=== PATIENT | female | born 2000 | race Caucasian/White ===

== ENCOUNTER 2022-08-16 10:49 | Inpatient (IN) | payer BC, MEDICAID ==
[2022-08-16] VITALS (51 sets, daily range): BP systolic 90–153; BP diastolic 50–96
[~2022-08-16] VITALS: Ht 165 cm; Wt 82.8 kg
[2022-08-16] MEDS ORDERED: D5 LR IV SOLUTION 1,000 ML IV ONE (11:47)
[2022-08-16] MEDS: D5 LR IV SOLUTION 1,000 ML IV SCH ×2 (12:22→20:48)
[2022-08-16 12:36] LABS: BILIRUBIN,URINE NEGATIVE (NEGATIVE); CLARITY,URINE CLEAR; COLOR,URINE YELLOW; GLUCOSE, URINE (UA) NEGATIVE (NEGATIVE); KETONES,URINE NEGATIVE (NEGATIVE); LEUKOCYTE ESTERASE ,URINE NEGATIVE (NEGATIVE); NITRITE,URINE NEGATIVE (NEGATIVE); PROTEIN,URINE NEGATIVE (NEGATIVE)
[2022-08-16 12:37] LABS: BASOPHILS % (AUTO) 0 % (0-10); EOSINOPHILS # (AUTO) 0.2 10^3/uL (0.0-0.3); EOSINOPHILS % (AUTO) 1 % (0-10); HEMATOCRIT 38 % (35-52); HEMOGLOBIN 13.3 g/dL (11.5-16.0); LYMPHOCYTES # (AUTO) 2.5 10^3/uL (1.0-4.0); LYMPHOCYTES % (AUTO) 16 % (12-44); MEAN CORPUSCULAR HEMOGLOBIN 32 pg (25-34); MEAN CORPUSCULAR HGB CONC 35 g/dL (32-36); MEAN CORPUSCULAR VOLUME 93 fL (80-99); MEAN PLATELET VOLUME 11.1 fL (9.0-12.2); MONOCYTES # (AUTO) 1.4 10^3/uL (0.0-1.0); MONOCYTES % (AUTO) 9 % (0-12); NEUTROPHILS # (AUTO) 11.5 10^3/uL (1.8-7.8); NEUTROPHILS % (AUTO) 73 % (42-75); PLATELET COUNT 296 10^3/uL (130-400); WHITE BLOOD COUNT 15.7 10^3/uL (4.3-11.0)
[2022-08-16 12:46] LABS: BACTERIA,URINE FEW /HPF
[2022-08-16 12:47] LABS: SQUAMOUS EPITHELIAL CELL,UR 0-2 /HPF
[2022-08-16 13:01] LABS: EOSINOPHILS % (MANUAL) 1 %; LYMPHOCYTES % (MANUAL) 14 %; MONOCYTES % (MANUAL) 9 %; NEUTROPHILS % (MANUAL) 76 %; RBC MORPH NORMAL
[2022-08-16] MEDS ORDERED: PNV-9 PO (13:32)
[2022-08-16] MEDS ORDERED: FERR-84 PO (13:32)
--- NOTE | 2022-08-16 15:19 | History & Physical-OB ---
OB - Chief Complaint & HPI Date/Time Date of Admission: Date of Admission: Aug 16, 2022 at 11:37 Date seen by a Provider: Aug 16, 2022 Time Seen by a Provider: 14:25 Chief Complaint/History OB-Reason for Admission/Chief: Onset of Labor Hx : 1 Hx Para: 0 Gestational Age in Weeks: 39 Gestational Age in Days: 6 History of Labs A+, Ab neg, Rub Imm HIV/RPR/HepB/C NR Normal 1 hr GTT GBS neg Allergies and Home Medications Allergies Coded Allergies: No Known Drug Allergies (Unverified , 08/16/22) Patient Home Medication List Home Medication List Reviewed: Yes Ferrous Sulfate (Iron) 325 Mg (65 Mg Iron) Tablet, 325 MG PO, (Reported) Entered as Reported by: OCTAVIO MANDEL on 08/16/221331 Last Action: New Order Pnv 119/Iron Fum/Folic Acid ( 19 Tablet) 29 Mg Iron-1 Mg Tablet, 1 EACH PO, (Reported) Entered as Reported by: OCTAVIO MANDEL on 08/16/221331 Last Action: New Order OB - History Hx of Present Care: Yes Ultrasounds: Normal mid trimester US Obstetrical Complications: None Medical Complications: None Obstetrical History Hx : 1 Patient Past Medical History None Social History/Family History Alcohol Use: Denies Use Recreational Drug Use: No Smoking Cessation: Never smoker Immunizations Tetanus Booster (TDap): Less than 5yrs Rubella: immune RPR/VDRL: Negative GBS Status: Negative HBsAG: Negative OB - Admission Exam Physical Exam Vitals: Vital Signs 08/16/22 08/16/22 08/16/22 08/16/22 11:15 11:45 12:00 12:30 Temp 36.5 Pulse 97 Resp 18 B/P (MAP) 139/90 (106) Pulse Ox 98 O2 Delivery Room Air HEENT: NCAT Heart: Rhythm Normal Lungs: Clear Abdomen: Gravid Cervical Dilatation: 6cm Effacement: 100% Station: -1 Membranes: Intact Accelerations: Accelerations Present Decelerations: No Decelerations Short Term Variability: Present Regional Operations Director Variability: Average (6-25) Contractions on Admission: < 5 Minutes Apart Intensity: Firm Labs Laboratory Tests Test 08/16/22 12:32 Range/Units White Blood Count 15.7 H 4.3-11.0 10^3/uL Red Blood Count 4.10 3.80-5.11 10^6/uL Hemoglobin 13.3 11.5-16.0 g/dL Hematocrit 38 35-52 % Mean Corpuscular Volume 93 80-99 fL Mean Corpuscular Hemoglobin 32 25-34 pg Mean Corpuscular Hemoglobin Concent 35 32-36 g/dL Red Cell Distribution Width 14.3 10.0-14.5 % Platelet Count 296 130-400 10^3/uL Mean Platelet Volume 11.1 9.0-12.2 fL Immature Granulocyte % (Auto) 1 % Neutrophils (%) (Auto) 73 42-75 % Lymphocytes (%) (Auto) 16 12-44 % Monocytes (%) (Auto) 9 0-12 % Eosinophils (%) (Auto) 1 0-10 % Basophils (%) (Auto) 0 0-10 % Neutrophils # (Auto) 11.5 H 1.8-7.8 10^3/uL Lymphocytes # (Auto) 2.5 1.0-4.0 10^3/uL Monocytes # (Auto) 1.4 H 0.0-1.0 10^3/uL Eosinophils # (Auto) 0.2 0.0-0.3 10^3/uL Basophils # (Auto) 0.0 0.0-0.1 10^3/uL Immature Granulocyte # (Auto) 0.1 0.0-0.1 10^3/uL Neutrophils % (Manual) 76 % Lymphocytes % (Manual) 14 % Monocytes % (Manual) 9 % Eosinophils % (Manual) 1 % Blood Morphology Comment NORMAL Urine Color YELLOW Urine Clarity CLEAR Urine pH 7.0 5-9 Urine Specific [place] 1.010 L 1.016-1.022 Urine Protein NEGATIVE NEGATIVE Urine Glucose (UA) NEGATIVE NEGATIVE Urine Ketones NEGATIVE NEGATIVE Urine Nitrite NEGATIVE NEGATIVE Urine Bilirubin NEGATIVE NEGATIVE Urine Urobilinogen 0.2 < = 1.0 MG/DL Urine Leukocyte Esterase NEGATIVE NEGATIVE Urine RBC (Auto) NEGATIVE NEGATIVE Urine RBC NONE /HPF Urine WBC NONE /HPF Urine Squamous Epithelial Cells 0-2 /HPF Urine Crystals NONE /LPF Urine Bacteria FEW H /HPF Urine Casts NONE /LPF Urine Mucus NEGATIVE /LPF Urine Culture Indicated NO OB - Assessment/Plan/Diagnosis Assessment Assessment: active labor Admission Dx Third Trimester 39 week gestation Admission Status: Inpatient Order (span 2 midnights) Reason for Inpatient Admission: Labor and post care Plan Other Plan 22 yo G1 @ 39.6 wga here in active labor Plan - Expectant management - GBS neg - AROM 1430 Clear Copy Copies To 1: SAMANTHA HERNANDEZ MD, HOLLY R MD Aug 16, 2022 15:19
[2022-08-16] MEDS ORDERED: PANTOPRAZOLE 40 MG (PROTONIX) VIAL IV NR (16:15)
[2022-08-16] MEDS ORDERED: OXYTOCIN PRE-MIX DRIP 500 ML IV SCH (16:15)
[2022-08-16] MEDS ORDERED: fentaNYL INJ 100 MCG/2 ML AMP ONE ×2 (17:27→18:41)
[2022-08-16] MEDS ORDERED: fentaNYL INJ 100 MCG/2 ML AMP IVP PRN (17:30)
[2022-08-16] MEDS ORDERED: fentaNYL 2 mcg/ml BUPIVA 0.125 100 ML ONE (18:13)
[2022-08-16] MEDS ORDERED: BUPIVACAINE 0.25% 30 ML (SENSORCAINE) VIAL ONE (18:41)
[2022-08-16] MEDS ORDERED: ONDANSETRON 4 MG/2 ML (SDV) Z0FRAN IV PRN (19:15)
[2022-08-16] MEDS ORDERED: LACTATED RINGERS 1,000 ML IV SCH (19:15)
[2022-08-16] MEDS ORDERED: diphenhydrAMINE 50 MG/ML INJ (BENADRYL) IV PRN (19:15)
[2022-08-16] MEDS ORDERED: NALOXONE 0.4 MG/ML 1 ML (NARCAN) VIAL IV PRN (19:15)
[2022-08-16] MEDS ORDERED: fentaNYL 2 mcg/ml BUPIVA 0.125 100 ML EPI SCH (19:15)
[2022-08-16] MEDS ORDERED: FLU QUADRIvalent (6 months+) 60 mcg/0.5 ml 2022-23 (Fluzone) IM ONE (20:00)
[2022-08-17] VITALS (14 sets, daily range): BP systolic 109–133; BP diastolic 60–90
[2022-08-17] MEDS ORDERED: BENZOCAINE/MENTHOL (DERMOPLAST) 56 ML CAN TP PRN
[2022-08-17] MEDS ORDERED: WITCH HAZEL(TUCKS) 40 EA JAR TOP PRN
[2022-08-17] MEDS ORDERED: MEASLES,MUMPS,RUBELLA 1 EA INJ SQ ONE
[2022-08-17] MEDS ORDERED: TETANUS,DIPTH,PERTUSS P/F (BOOSTRIX) 0.5 ML VIAL IM ONE
[2022-08-17] MEDS ORDERED: OXYTOCIN PRE-MIX DRIP 500 ML IV SCH
[2022-08-17] MEDS ORDERED: OXYTOCIN PRE-MIX DRIP 500 ML IV ONE (00:09)
--- NOTE | 2022-08-17 00:34 | OB Labor & Delivery Record ---
Vag Delivery Note Vag Delivery Note Date of Delivery: 08/17/22 Preoperative Diagnosis: Lydia Garcia is a (22 /Para 1 / 0, Gestational Age (wks)39.6 here in active labor Postoperative Diagnosis: Same Surgeon: SAMANTHA HERNANDEZ MD Record Tester: None Anesthesia: Epidural Delivery Type: @ 0000 Findings: Viable female infant, apgars 8/9, weight Lacerations: 2nd degree laceration Intact placenta with 3 vessel cord. No nuchal cord, body cord or shoulder dystocia Estimated Blood Loss: 125 ml Complications: None Condition: Stable Description of Procedure: The patient is a 22 year old female who presented in active labor. She was admitted and informed consent was obtained. Her labor course was unremarkable. She progressed to complete dilatation and began to push. She was then set up for delivery. The 's head was delivered atraumatically in the LUPILLO position. The shoulders and remainder of the infant's body were then delivered without difficulty. Upon delivery, the head was held below the level of the perineum and the mouth and nares were bulb suctioned. The cord was doubly clamped and cut by FOB after 2 min delay and the was attended to by the pediatric staff on maternal abdomen. An intact placenta with 3-vessel cord delivered via Olegario and there was found to be minimal bleeding.~ Vigorous fundal massage was performed and the fundus was found to be firm. IV oxytocin was given. Examination of the vagina and perineum revealed a 2nd degree perineal laceration repaired in the usual fashion with 3-0 vicryl suture. Following the repair, sponge, instrument and needle counts were correct. Mom and baby were both in stable condition in the labor suite. Vitals - Labs Vital Signs - I&O Vital Signs Date Time Temp Pulse Resp B/P (MAP) Pulse Ox O2 Delivery O2 Flow Rate FiO2 08/16/22 19:00 104 18 121/57 (78) 98 Room Air 08/16/22 18:55 109 18 129/66 (87) 100 Room Air 08/16/22 18:50 121 18 141/62 (88) 100 Room Air 08/16/22 18:45 117 18 138/71 (93) 100 Room Air 08/16/22 18:30 18 Room Air 08/16/22 18:15 103 18 137/93 (108) Room Air 08/16/22 18:00 99 18 120/68 (85) Room Air 08/16/22 17:45 100 18 115/60 (78) Room Air 08/16/22 17:30 96 18 116/71 (86) Room Air 08/16/22 17:15 120 18 130/87 (101) Room Air 08/16/22 17:00 120 18 130/87 (101) Room Air 08/16/22 16:45 100 18 128/88 (101) Room Air 08/16/22 16:30 112 18 132/89 (103) Room Air 08/16/22 16:00 36.1 08/16/22 15:45 114 18 135/90 (105) Room Air 08/16/22 15:15 97 18 139/91 (107) Room Air 08/16/22 14:45 97 18 114/71 (85) Room Air 08/16/22 14:15 102 18 131/83 (99) Room Air 08/16/22 13:45 100 18 131/83 (99) Room Air 08/16/22 13:15 85 18 126/77 (93) Room Air 08/16/22 12:45 102 18 149/66 (93) Room Air 08/16/22 12:30 Room Air 08/16/22 12:00 18 Room Air 08/16/22 11:45 97 18 139/90 (106) Room Air 08/16/22 11:30 85 18 134/84 (101) Room Air 08/16/22 11:15 36.5 109 18 98 Room Air 08/16/22 11:10 36.5 109 18 153/96 (115) 98 Room Air Labs Laboratory Tests 08/16/22 12:32: White Blood Count 15.7H, Red Blood Count 4.10, Hemoglobin 13.3, Hematocrit 38, Mean Corpuscular Volume 93, Mean Corpuscular Hemoglobin 32, Mean Corpuscular Hemoglobin Concent 35, Red Cell Distribution Width 14.3, Platelet Count 296, Mean Platelet Volume 11.1, Immature Granulocyte % (Auto) 1, Neutrophils (%) (Au to) 73, Lymphocytes (%) (Auto) 16, Monocytes (%) (Auto) 9, Eosinophils (%) (Auto) 1, Basophils (%) (Auto) 0, Neutrophils # (Auto) 11.5H, Lymphocytes # (Auto) 2.5, Monocytes # (Auto) 1.4H, Eosinophils # (Auto) 0.2, Basophils # (Auto) 0.0, Immature Granulocyte # (Auto) 0.1, Neutrophils % (Manual) 76, Lymphocytes % (Manual) 14, Monocytes % (Manual) 9, Eosinophils % (Manual) 1, Blood Morphology Comment NORMAL, Urine Color YELLOW, Urine Clarity CLEAR, Urine pH 7.0, Urine Specific [employer] 1.010L, Urine Protein NEGATIVE, Urine Glucose (UA) NEGATIVE, Urine Ketones NEGATIVE, Urine Nitrite NEGATIVE, Urine Bilirubin NEGATIVE, Urine Urobilinogen 0.2, Urine Leukocyte Esterase NEGATIVE, Urine RBC (Auto) NEGATIVE, Urine RBC NONE, Urine WBC NONE, Urine Squamous Epithelial Cells 0-2, Urine Crystals NONE, Urine Bacteria FEWH, Urine Casts NONE, Urine Mucus NEGATIVE, Urine Culture Indicated NO, Syphilis Serology Non-Reactive SAMANTHA HERNANDEZ MD Aug 17, 2022 00:34
[2022-08-17] MEDS ORDERED: ACETAMINOPHEN 500 MG TAB (TYLENOL) PO PRN (00:45)
[2022-08-17] MEDS: IBUPROFEN 600 MG (MOTRIN) TAB PO SCH ×5 (01:10→21:19)
[2022-08-17] MEDS: ACETAMINOPHEN 500 MG TAB (TYLENOL) PO SCH ×4 (07:03→21:19)
[2022-08-17 08:30] LABS: BASOPHILS # (AUTO) 0.1 10^3/uL (0.0-0.1); BASOPHILS % (AUTO) 0 % (0-10); EOSINOPHILS # (AUTO) 0.1 10^3/uL (0.0-0.3); EOSINOPHILS % (AUTO) 0 % (0-10); HEMATOCRIT 36 % (35-52); HEMOGLOBIN 12.5 g/dL (11.5-16.0); LYMPHOCYTES # (AUTO) 1.9 10^3/uL (1.0-4.0); LYMPHOCYTES % (AUTO) 8 % (12-44); MEAN CORPUSCULAR HEMOGLOBIN 32 pg (25-34); MEAN CORPUSCULAR HGB CONC 34 g/dL (32-36); MEAN CORPUSCULAR VOLUME 94 fL (80-99); MEAN PLATELET VOLUME 11.2 fL (9.0-12.2); MONOCYTES # (AUTO) 1.9 10^3/uL (0.0-1.0); MONOCYTES % (AUTO) 9 % (0-12); NEUTROPHILS # (AUTO) 18.1 10^3/uL (1.8-7.8); NEUTROPHILS % (AUTO) 82 % (42-75); PLATELET COUNT 253 10^3/uL (130-400); WHITE BLOOD COUNT 22.2 10^3/uL (4.3-11.0)
[2022-08-17] MEDS: PRENATAL VITAMIN 1 EA TAB PO SCH (08:44)
[2022-08-17] MEDS: DOCUSATE SODIUM 100 MG (COLACE) CAP PO SCH ×2 (08:45→21:19)
[2022-08-17] MEDS: CATHETER FLUSH 10 ML SYR IV SCH ×2 (09:00→14:00)
--- NOTE | 2022-08-17 10:02 | Progress Note ---
Subjective Subjective/Events-last exam Doing well. Breast feeding going well. Pain level is appropriate. Lochia decreased. Objective Exam Last Set of Vital Signs Vital Signs Date Time Temp Pulse Resp B/P (MAP) Pulse Ox O2 Delivery O2 Flow Rate FiO2 08/17/22 08:56 37.0 115 18 124/78 (93) 98 Room Air Capillary Refill : I&O Intake and Output 08/17/22 00:00 Daily Weight Change No General: Alert, Oriented X3, Cooperative Psych/Mental Status: Mood NL Results/Procedures Lab Laboratory Tests 08/16/22 12:32: White Blood Count 15.7H, Red Blood Count 4.10, Hemoglobin 13.3, Hematocrit 38, Mean Corpuscular Volume 93, Mean Corpuscular Hemoglobin 32, Mean Corpuscular Hemoglobin Concent 35, Red Cell Distribution Width 14.3, Platelet Count 296, Mean Platelet Volume 11.1, Immature Granulocyte % (Auto) 1, Neutrophils (%) (Auto) 73, Lymphocytes (%) (Auto) 16, Monocytes (%) (Auto) 9, Eosinophils (%) (Auto) 1, Basophils (%) (Auto) 0, Neutrophils # (Auto) 11.5H, Lymphocytes # (Auto) 2.5, Monocytes # (Auto) 1.4H, Eosinophils # (Auto) 0.2, Basophils # (Auto) 0.0, Immature Granulocyte # (Auto) 0.1, Neutrophils % (Manual) 76, Ly mphocytes % (Manual) 14, Monocytes % (Manual) 9, Eosinophils % (Manual) 1, Blood Morphology Comment NORMAL, Urine Color YELLOW, Urine Clarity CLEAR, Urine pH 7.0, Urine Specific [place] 1.010L, Urine Protein NEGATIVE, Urine Glucose (UA) NEGATIVE, Urine Ketones NEGATIVE, Urine Nitrite NEGATIVE, Urine Bilirubin NEGATIVE, Urine Urobilinogen 0.2, Urine Leukocyte Esterase NEGATIVE, Urine RBC (Auto) NEGATIVE, Urine RBC NONE, Urine WBC NONE, Urine Squamous Epithelial Cells 0-2, Urine Crystals NONE, Urine Bacteria FEWH, Urine Casts NONE, Urine Mucus NEGATIVE, Urine Culture Indicated NO, Syphilis Serology Non-Reactive 08/17/22 07:48: White Blood Count 22.2H, Red Blood Count 3.86, Hemoglobin 12.5, Hematocrit 36, Mean Corpuscular Volume 94, Mean Corpuscular Hemoglobin 32, Mean Corpuscular Hemoglobin Concent 34, Red Cell Distribution Width 14.6H, Platelet Count 253, Mean Platelet Volume 11.2, Immature Granulocyte % (Auto) 1, Neutrophils (%) (Auto) 82H, Lymphocytes (%) (Auto) 8L, Monocytes (%) (Auto) 9, Eosinophils (%) (Auto) 0, Basophils (%) (Auto) 0, Neutrophils # (Auto) 18.1H, Lymphocytes # (Auto) 1.9, Monocytes # (Auto) 1.9H, Eosinophils # (Auto) 0.1, Basophils # (Auto) 0.1, Immature Granulocyte # (Auto) 0.2H Assessment/Plan Assessment/Plan Assessment & Plan PPD #1 s/p Second degree laceration repair Continue routine care. Anticipate DC home tomorrow. MARGAUX DARBY DO Aug 17, 2022 10:02
--- NOTE | 2022-08-17 12:58 | Anesthesia-Regional Post-Op ---
Regional Patient Condition Mental Status: Alert, Oriented x3 Circulation: Same as Pre-Op Headache: Absent Sensation: Full Recovery Motor Block: Absent Post Op Complications Complications None Follow Up Care/Instructions Patient Instructions None needed. Anesthesia/Patient Condition Patient is doing well, no complaints, stable vital signs, no apparent adverse anesthesia problems. No complications reported per nursing. ZEUS GARCIA CRNA Aug 17, 2022 12:58
[2022-08-18 05:00] VITALS: BP 134/83
[2022-08-18] MEDS: IBUPROFEN 600 MG (MOTRIN) TAB PO SCH (05:03)
[2022-08-18] MEDS: DOCUSATE SODIUM 100 MG (COLACE) CAP PO SCH (07:39)
[2022-08-18] MEDS: PRENATAL VITAMIN 1 EA TAB PO SCH (07:39)
[2022-08-18 07:40] VITALS: BP 133/82
[2022-08-18] MEDS ORDERED: IBUP-844 PO (08:50)
--- NOTE | 2022-08-18 08:52 | Short Stay Summary ---
Discharge Summary Hospital Course Final Diagnosis: s/p Hospital Course Date of Admission: Aug 16, 2022 at 11:37 Admission Diagnosis : Spontaneous labor at 39w6d Family Physician/Provider:Jodi Date of Discharge: 08/18/22 Discharge Diagnosis: [ ] PPD #2 s/p Second degree laceration repair Continue routine care. Anticipate DC home tomorrow. Hospital Course: Routine course Labs and Pending Lab Test: Laboratory Tests 08/16/22 12:32: White Blood Count 15.7H, Red Blood Count 4.10, Hemoglobin 13.3, Hematocrit 38, Mean Corpuscular Volume 93, Mean Corpuscular Hemoglobin 32, Mean Corpuscular Hemoglobin Concent 35, Red Cell Distribution Width 14.3, Platelet Count 296, Mean Platelet Volume 11.1, Immature Granulocyte % (Auto) 1, Neutrophils (%) (Auto) 73, Lymphocytes (%) (Auto) 16, Monocytes (%) (Auto) 9, Eosinophils (%) (Auto) 1, Basophils (%) (Auto) 0, Neutrophils # (Auto) 11.5H, Lymphocytes # (Auto) 2.5, Monocytes # (Auto) 1.4H, Eosinophils # (Auto) 0.2, Basophils # (Auto) 0.0, Immature Granulocyte # (Auto) 0.1, Neutrophils % (Manual) 76, Lymphocytes % (Manual) 14, Monocytes % (Manual) 9, Eosinophils % (Manual) 1, Blood Morphology Comment NORMAL, Urine Color YELLOW, Urine Clarity CLEAR, Urine pH 7.0, Urine Specific [place] 1.010L, Urine Protein NEGATIVE, Urine Glucose (UA) NEGATIVE, Urine Ketones NEGATIVE, Urine Nitrite NEGATIVE, Urine Bilirubin NEGATIVE, Urine Urobilinogen 0.2, Urine Leukocyte Esterase NEGATIVE, Urine RBC (Auto) NEGATIVE, Urine RBC NONE, Urine WBC NONE, Urine Squamous Epithelial Cells 0-2, Urine Crystals NONE, Urine Bacteria FEWH, Urine Casts NONE, Urine Mucus NEGATIVE, Urine Culture Indicated NO, Syphilis Serology Non-Reactive 08/17/22 07:48: White Blood Count 22.2H, Red Blood Count 3.86, Hemoglobin 12.5, Hematocrit 36, Mean Corpuscular Volume 94, Mean Corpuscular Hemoglobin 32, Mean Corpuscular Hemoglobin Concent 34, Red Cell Distribution Width 14.6H, Platelet Count 253, Mean Platelet Volume 11.2, Immature Granulocyte % (Auto) 1, Neutrophils (%) (Auto) 82H, Lymphocytes (%) (Auto) 8L, Monocytes (%) (Auto) 9, Eosinophils (%) (Auto) 0, Basophils (%) (Auto) 0, Neutrophils # (Auto) 18.1H, Lymphocytes # (Auto) 1.9, Monocytes # (Auto) 1.9H, Eosinophils # (Auto) 0.1, Basophils # (Auto) 0.1, Immature Granulocyte # (Auto) 0.2H Home Meds Active Reported Iron (Ferrous Sulfate) 325 Mg (65 Mg Iron) Tablet 325 Mg PO 19 Tablet (Pnv 119/Iron Fum/Folic Acid) 29 Mg Iron-1 Mg Tablet 1 Each PO Assessment/Pt Instructions Follow up with Dr. Zapata in 6wk Discharge Instructions Discharge Diet: No Restrictions Discharge Physical Examination General Appearance: Alert, Oriented X3, Cooperative Psych/Mental Status: Mood NL Allergies: Coded Allergies: No Known Drug Allergies (Unverified , 08/16/22) Discharge Summary Date of Admission Aug 16, 2022 at 11:37 Date of Discharge MARGAUX DARBY DO Aug 18, 2022 08:52
[2022-08-18 15:20] VITALS: BP 133/82
== END 2022-08-18 15:20 | disposition home or self-care (01) | DRG 807 ==
LOC: WSo 10:49 → LDRP 10:49 → WSo 11:37 → LDRP 11:37
PROVIDERS: ADMIT Family Medicine; ATTEND Family Medicine
PROC: 10E0XZZ Delivery of Products of Conception, External Approach (ICD-10-PCS; principal; 2022-08-17)
PROC: 0KQM0ZZ Repair Perineum Muscle, Open Approach (ICD-10-PCS; 2022-08-17)
DX: O70.1 Second degree perineal laceration during delivery (principal); Z37.0 Single live birth; Z3A.39 39 weeks gestation of pregnancy
CPT/HCPCS: 36415; 81000; 85007; 85025; 85027; 86780; 86850; 86900; 86901; 99212